=== PATIENT | male | born 1990 | race Caucasian/White ===

== ENCOUNTER 2019-09-01 20:53 | Emergency (ER) | payer OTHER ==
[~2019-09-01] VITALS: Ht 172.7 cm; Wt 76.2 kg
== END 2019-09-01 21:22 | disposition home or self-care (01) ==
LOC: ER 20:53
DX: L02.416 Cutaneous abscess of left lower limb (principal)

== ENCOUNTER 2020-03-02 13:05 | Emergency (ER) | payer OTHER ==
[~2020-03-02] VITALS: Ht 172.7 cm; Wt 80.7 kg
[2020-03-02] MEDS ORDERED: DESCOVY 200-251 EACH (13:17)
== END 2020-03-02 18:22 | disposition home or self-care (01) ==
LOC: ER 13:05
DX: G51.0 Bell's palsy (principal)

== ENCOUNTER 2021-02-12 02:13 | Emergency (ER) | payer OTHER ==
[~2021-02-12] VITALS: Ht 172.7 cm; Wt 81.6 kg
[~2021-02-12 02:13] MED LIST: DESCOVY 200-251 EACH
[2021-02-12] MEDS ORDERED: SKELAXIN800 MG (02:21)
[2021-02-12] MEDS ORDERED: KETO10TA2 (02:21)
[2021-02-12] MEDS ORDERED: DICLOFENAC35 MG (02:24)
[2021-02-12] MEDS ORDERED: KETO10TA2 PO (02:56)
[2021-02-12] MEDS ORDERED: ORPHENADRINE C100 MG PO (02:56)
== END 2021-02-12 03:11 ==
LOC: ER 02:13
DX: M54.50 Low back pain, unspecified (principal); R25.2 Cramp and spasm

== ENCOUNTER 2021-07-03 03:21 | Emergency (ER) | payer OTHER ==
[~2021-07-03] VITALS: Ht 172.7 cm; Wt 77.1 kg
[~2021-07-03 03:21] MED LIST changes: +DICLOFENAC35 MG; +KETO10TA2; +KETO10TA2 PO; +ORPHENADRINE C100 MG PO; +SKELAXIN800 MG
[2021-07-03] MEDS ORDERED: SURFAK240 MG PO (07:24)
== END 2021-07-03 07:30 | disposition home or self-care (01) ==
LOC: ER 03:21
DX: K59.09 Other constipation (principal); R10.84 Generalized abdominal pain

== ENCOUNTER 2022-01-29 17:24 | Emergency (ER) | payer OTHER ==
[~2022-01-29] VITALS: Ht 172.7 cm; Wt 74.8 kg
[~2022-01-29 17:24] MED LIST changes: +ACETAMINOPHEN650 M2; +SURFAK240 MG PO
== END 2022-01-29 20:40 | disposition home or self-care (01) ==
LOC: ER 17:24
DX: R53.81 Other malaise (principal); R50.9 Fever, unspecified

== ENCOUNTER 2022-08-04 19:29 | Emergency (ER) | payer OTHER ==
[~2022-08-04] VITALS: Ht 172.7 cm; Wt 77.1 kg
== END 2022-08-04 22:01 | disposition home or self-care (01) ==
LOC: ER 19:29
DX: U07.1 COVID-19 (principal); R53.81 Other malaise; J10.1 Influenza due to other identified influenza virus with other respiratory manifestations

== ENCOUNTER 2023-08-05 09:55 | Emergency (ER) | payer OTHER ==
[~2023-08-05] VITALS: Ht 172.7 cm; Wt 80.7 kg
[2023-08-05] MEDS ORDERED: FAMOTIDINE/PF 20 MG in 0.9 % SODIUM CHLORIDE 8 ML IV PUSH STA (10:09)
[2023-08-05] MEDS ORDERED: ONDANSETRON HCL 2 MG/ML VIAL IV ONE (10:15)
[2023-08-05] MEDS ORDERED: METRONIDAZOLE/SODIUM CHLORIDE 500 MG/100 ML PIGGYBACK IV ONE (10:15)
[2023-08-05] MEDS ORDERED: 0.9 % SODIUM CHLORIDE 1,000 ML IV SCH (10:15)
[2023-08-05] MEDS ORDERED: DIPHENOXYLATE HCL/ATROPINE 1 UDTAB TABLET PO ONE (10:15)
[2023-08-05 11:14] LABS: HEMATOCRIT 38.8 % (39.0-48.0); HEMOGLOBIN 13.4 g/dL (13-16.00); MEAN CELL VOLUME 84.7 fL (80.0-100.00); MEAN CORPUSCULAR HEMOGLOBIN 29.2 pg (27.00-32.0); MEAN CORPUSCULAR HGB CONC 34.4 g/dl (32.0-36.0); PLATELET COUNT 258 K/uL (150-450); RED BLOOD COUNT 4.58 M/uL (4.00-6.00)
[2023-08-05 11:36] LABS: ALBUMIN 4.2 gm/dL (3.4-5.0); BILIRUBIN TOTAL 0.82 mg/dL (0.3-1.2); CALCIUM 9.2 mg/dL (8.5-10.1); CREATININE SERUM 1.05 mg/dL (0.70-1.30); GFR 80.85; GLOBULINA 3.9 G/DL (2.4-3.5); POTASSIUM 3.53 mEq/L (3.5-5.1); TOTAL PROTEIN 8.1 gm/dL (6.4-8.2)
[2023-08-05] MEDS ORDERED: ZOFRAN8 MG PO (12:57)
[2023-08-05] MEDS ORDERED: PEPCID AC20 MG PO (12:57)
== END 2023-08-05 13:26 | disposition home or self-care (01) ==
LOC: ER 09:56
PROVIDERS: General Practice
DX: K52.9 Noninfective gastroenteritis and colitis, unspecified (principal)

== ENCOUNTER 2023-12-12 07:59 | Emergency (ER) | payer OTHER ==
[~2023-12-12] VITALS: Ht 172.7 cm; Wt 79.4 kg
[~2023-12-12 07:59] MED LIST changes: +PEPCID AC20 MG PO; +ZOFRAN8 MG PO
[2023-12-12] MEDS ORDERED: POVIDONE-IODINE 118 ML BOTT TOP ONE (08:11)
[2023-12-12] MEDS ORDERED: LIDOCAINE HCL 1% 10ML VIAL ONE (08:27)
[2023-12-12] MEDS ORDERED: CEFTRIAXONE SODIUM 2,000 MG VIAL IM ONE (08:30)
[2023-12-12] MEDS ORDERED: LIDOCAINE HCL 1% 10ML VIAL PERCUT ONE (08:30)
[2023-12-12] MEDS ORDERED: KETOROLAC TROMETHAMINE 60 MG VIAL IM ONE ×2 (08:30→08:32)
[2023-12-12] MEDS ORDERED: CEFTRIAXONE SODIUM 2,000 MG VIAL ONE (08:33)
[2023-12-12] MEDS ORDERED: PEPCID AC20 MG PO (08:59)
[2023-12-12] MEDS ORDERED: CEPHALEXIN750 MG PO (08:59)
== END 2023-12-12 09:04 | disposition home or self-care (01) ==
LOC: ER 08:00
DX: S61.011A Laceration without foreign body of right thumb without damage to nail, initial encounter (principal); W25.XXXA Contact with sharp glass, initial encounter; Y93.89 Activity, other specified; Y92.89 Other specified places as the place of occurrence of the external cause; Y99.9 Unspecified external cause status

== ENCOUNTER 2023-12-20 10:21 | Emergency (ER) | payer OTHER ==
[~2023-12-20] VITALS: Ht 172.7 cm; Wt 79.4 kg
[~2023-12-20 10:21] MED LIST changes: +CEPHALEXIN750 MG PO
== END 2023-12-20 12:34 | disposition home or self-care (01) ==
LOC: ER 10:23
DX: Z48.02 Encounter for removal of sutures (principal)

== ENCOUNTER 2023-12-26 17:40 | Emergency (ER) | payer OTHER ==
[~2023-12-26] VITALS: Ht 172.7 cm; Wt 79.4 kg
== END 2023-12-26 19:10 | disposition home or self-care (01) ==
LOC: ER 17:41
DX: Z48.02 Encounter for removal of sutures (principal)

== ENCOUNTER 2024-05-26 08:49 | Emergency (ER) | payer OTHER ==
[~2024-05-26] VITALS: Ht 172.7 cm; Wt 81.6 kg
[2024-05-26 09:46] VITALS: BP 127/80; O2SAT 100
[2024-05-26 10:59] LABS: HEMATOCRIT 37.6 % (39.0-48.0); HEMOGLOBIN 12.6 g/dL (13-16.00); MEAN CELL VOLUME 88.8 fL (80.0-100.00); MEAN CORPUSCULAR HEMOGLOBIN 29.8 pg (27.00-32.0); MEAN CORPUSCULAR HGB CONC 33.5 g/dl (32.0-36.0); PLATELET COUNT 223 K/uL (150-450); RED BLOOD COUNT 4.24 M/uL (4.00-6.00); RED CELL DISTRIBUTION WIDTH 14.4 % (11.5-14.5)
== END 2024-05-26 13:11 | disposition home or self-care (01) ==
LOC: ER 08:51
PROVIDERS: General Practice
DX: U07.1 COVID-19 (principal)

== ENCOUNTER → 2024-09-08 | Emergency (ER) | payer OTHER | END | disposition left against medical advice (07) | LOC: ER 22:51 | DX: Z53.21 Procedure and treatment not carried out due to patient leaving prior to being seen by health care provider (principal) ==

== ENCOUNTER 2024-09-09 22:22 | Emergency (ER) | payer OTHER ==
[~2024-09-09] VITALS: Ht 172.7 cm; Wt 76.2 kg
[2024-09-09 23:18] VITALS: BP 118/83; O2SAT 100
[2024-09-10] MEDS ORDERED: RINGERS SOLUTION,LACTATED 1,000 ML IV STA (00:48)
[2024-09-10] MEDS ORDERED: CEFAZOLIN SODIUM 1,000 MG VIAL IV STA (00:48)
[2024-09-10] MEDS ORDERED: FAMOtidine 10 MG/ML (4ML VIAL) IV PUSH STA (00:49)
[2024-09-10] MEDS ORDERED: ONDANSETRON HCL 2 MG/ML VIAL IV STA (00:49)
[2024-09-10] MEDS ORDERED: METHYLPREDNISOLONE SOD SUCC 125 MG VIAL ONE (00:55)
[2024-09-10] MEDS ORDERED: CEFAZOLIN SODIUM 1,000 MG VIAL ONE (00:55)
[2024-09-10] MEDS ORDERED: ONDANSETRON HCL 2 MG/ML VIAL ONE (00:55)
[2024-09-10] MEDS ORDERED: FAMOTIDINE/PF 20 MG/2 ML VIAL ONE (00:56)
[2024-09-10] MEDS ORDERED: HYOSCYAMINE SULFATE 0.125 MG TAB.SUBL SL ONE (01:00)
[2024-09-10] MEDS ORDERED: HYOSCYAMINE SULFATE 0.125 MG TAB.SUBL ONE (01:19)
[2024-09-10 01:31] LABS: BASO % 0.3 % (0.1-1.2); EOS # 0.07 (0.04-0.54); EOS % 1.2 % (0.7-7.0); HEMATOCRIT 38.4 % (40.1-51.0); HEMOGLOBIN 13.3 g/dL (13.7-17.5); LYMPH # 1.98 (1.18-3.74); LYMPH % 32.6 % (19.3-53.1); MEAN CORPUSCULAR HEMOGLOBIN 28.7 pg (25.6-32.2); MONO # 0.65 (0.24-0.82); MONO % 10.7 % (4.7-12.5); NEUT # 3.33 (1.56-6.13); NEUT % 54.9 % (34.0-71.1); PLATELET COUNT 282 K/uL (163-369); RED BLOOD COUNT 4.64 M/uL (4.63-6.08); RED CELL DISTRIBUTION WIDTH 12.5 % (11.6-14.4)
[2024-09-10 01:58] LABS: CALCIUM 8.6 mg/dL (8.5-10.1); CREATININE SERUM 0.99 mg/dL (0.70-1.30); GFR 85.53; POTASSIUM 4.63 mEq/L (3.5-5.1)
== END 2024-09-10 02:56 | disposition home or self-care (01) ==
LOC: ER 22:22
DX: R19.7 Diarrhea, unspecified (principal)

== ENCOUNTER 2024-11-07 03:17 | Emergency (ER) | payer OTHER ==
[~2024-11-07] VITALS: Ht 172.7 cm; Wt 77.1 kg
[2024-11-07] MEDS ORDERED: LIBRAX (03:47)
[2024-11-07] MEDS ORDERED: FAMOTIDINE/PF 20 MG in 0.9 % SODIUM CHLORIDE 8 ML IV PUSH STA (04:05)
[2024-11-07] MEDS ORDERED: DIPHENOXYLATE HCL/ATROPINE 1 UDTAB TABLET PO ONE (04:15)
[2024-11-07] MEDS ORDERED: 0.9 % SODIUM CHLORIDE 1,000 ML IV SCH (04:15)
[2024-11-07] MEDS ORDERED: ONDANSETRON HCL 2 MG/ML VIAL IV ONE (04:15)
[2024-11-07] MEDS ORDERED: FAMOTIDINE/PF 20 MG/2 ML VIAL ONE (04:36)
[2024-11-07 06:05] LABS: BASO % 0.2 % (0.1-1.2); EOS # 0.01 (0.04-0.54); EOS % 0.2 % (0.7-7.0); LYMPH # 0.83 (1.18-3.74); LYMPH % 12.8 % (19.3-53.1); MEAN PLATELET VOLUME 10.60 fl (9.4-12.4); MONO # 0.33 (0.24-0.82); MONO % 5.1 % (4.7-12.5); NEUT # 5.30 (1.56-6.13); NEUT % 81.5 % (34.0-71.1); RED CELL DISTRIBUTION WIDTH 13.0 % (11.6-14.4)
[2024-11-07 06:23] LABS: ALT/SGPT 28.0 U/L (12-78); AST/SGOT 20.0 U/L (15-37); BILIRUBIN TOTAL 0.85 mg/dL (0.3-1.2); BUN CREA RATIO 14.0 (7.0-25.0); CREATININE SERUM 1.18 mg/dL (0.70-1.30); GFR 69.85; GLOBULINA 4.2 G/DL (2.4-3.5); GLUCOSE FASTING 117.0 mg/dL (65-100); OSMOLALITY SERUM 282.0 MOSM/KG (275-295)
[2024-11-07] MEDS ORDERED: METRONIDAZOLE/SODIUM CHLORIDE 500 MG/100 ML PIGGYBACK IV ONE ×2 (08:11→08:15)
[2024-11-07] MEDS ORDERED: CIPROFLOXACIN IN 5 % DEXTROSE 400 MG/200 ML PIGGYBAG IV ONE ×2 (08:11→08:15)
== END 2024-11-07 11:55 | disposition home or self-care (01) ==
LOC: ER 03:30
PROVIDERS: General Practice
DX: K52.89 Other specified noninfective gastroenteritis and colitis (principal)

== ENCOUNTER → 2024-11-08 | Emergency (ER) | payer OTHER ==
[~2024-11-08] VITALS: Ht 172.7 cm; Wt 74.8 kg
[~2024-11-08] MED LIST changes: +0.9 % SODIUM CHLORIDE 1,000 ML IV SCH; +CIPROFLOXACIN IN 5 % DEXTROSE 400 MG/200 ML PIGGYBAG IV ONE; +DIPHENOXYLATE HCL/ATROPINE 1 UDTAB TABLET PO ONE; +KETOROLAC TROMETHAMINE 30 MG VIAL IV ONE; +KETOROLAC TROMETHAMINE 30 MG VIAL ONE; +LIBRAX; +METRONIDAZOLE/SODIUM CHLORIDE 500 MG/100 ML PIGGYBACK IV ONE; +PANTOPRAZOLE SODIUM 40 MG in 0.9 % SODIUM CHLORIDE 8 ML IV PUSH STA
[2024-11-08 23:59] LABS: BASO % 0.2 % (0.1-1.2); EOS # 0.06 (0.04-0.54); EOS % 1.2 % (0.7-7.0); LYMPH # 1.31 (1.18-3.74); LYMPH % 26.8 % (19.3-53.1); MEAN PLATELET VOLUME 10.30 fl (9.4-12.4); MONO # 0.46 (0.24-0.82); MONO % 9.4 % (4.7-12.5); NEUT # 3.04 (1.56-6.13); NEUT % 62.2 % (34.0-71.1); RED CELL DISTRIBUTION WIDTH 12.9 % (11.6-14.4)
[2024-11-09 00:24] LABS: ALT/SGPT 25.0 U/L (12-78); AST/SGOT 22.0 U/L (15-37); BILIRUBIN TOTAL 0.69 mg/dL (0.3-1.2); BUN CREA RATIO 7.0 (7.0-25.0); CREATININE SERUM 1.05 mg/dL (0.70-1.30); GFR 79.92; GLOBULINA 3.7 G/DL (2.4-3.5); GLUCOSE FASTING 103.0 mg/dL (65-100); OSMOLALITY SERUM 274.0 MOSM/KG (275-295)
== END | disposition home or self-care (01) ==
LOC: ER 22:00
PROVIDERS: General Practice
DX: R19.7 Diarrhea, unspecified (principal); R10.9 Unspecified abdominal pain